=== PATIENT | male | born 1980 | race Two or more races ===

== ENCOUNTER 2016-09-25 23:06 | Emergency (ER) | payer SELFPAY ==
[~2016-09-25] VITALS: Ht 177.8 cm; Wt 99.8 kg
[2016-09-26] MEDS ORDERED: IV NORMAL SALINE 1000ML BAG 1,000 ML IV ONE (00:45)
[2016-09-26] MEDS ORDERED: KETOROLAC 15 MG/ML VIAL. IV ONE (00:45)
[2016-09-26] MEDS ORDERED: diphenhydrAMINE 50 MG/ML VIAL IVP ONE (00:45)
[2016-09-26] MEDS ORDERED: METOCLOPRAMIDE HCL 10 MG/2 ML VIAL. IV ONE (00:45)
[2016-09-26 01:02] LABS: BASO # 0.1 x10^3/uL (0.0-0.2); BASO % 1 % (0-3); EOS % 3 % (0-3); HEMATOCRIT 42.8 % (39.0-53.0); HEMOGLOBIN 14.9 g/dL (13.0-17.5); LYMPH # 2.3 x10^3/uL (1.0-4.8); LYMPH % 21 % (24-48); MEAN CORPUSCULAR HEMOGLOBIN 29 pg (25-35); MEAN CORPUSCULAR HGB CONC 35 g/dL (31-37); MEAN CORPUSCULAR VOLUME 83 fL (79-100); MONO % 4 % (0-9); NEUT % 71 % (31-73); PLATELET COUNT 251 x10^3/uL (140-400); RED BLOOD COUNT 5.13 x10^6/uL (4.30-5.70); RED CELL DISTRIBUTION WIDTH 12.9 % (11.5-14.5)
[2016-09-26 01:11] LABS: CREATININE 1.1 mg/dL (0.7-1.3); GFR 75.7; POTASSIUM 3.8 mmol/L (3.5-5.1)
--- NOTE | 2016-09-26 01:14 | RAD ---
CT head without contrast: Reason for examination: Stabbing headache tonight. Axial images were obtained through the brain. No contrast was administered. Exposure: One or more of the following individualized dose reduction techniques were utilized for this examination: 1. Automated exposure control 2. Adjustment of the mA and/or kV according to patient size 3. Use of iterative reconstruction technique. Ventricular systems are symmetric and not abnormally dilated. No midline shift is seen. There is no evidence of intracranial hemorrhage, infarct, mass or edema. No abnormalities are seen at the orbits. The paranasal sinuses are clear. Mastoid air cells are clear. No acute abnormality seen in the skull. IMPRESSION: No acute intracranial abnormality evident. Electronically signed by: Isa Lockhart MD (09/26/2016 1:11 AM) [facility]
[2016-09-26 01:17] LABS: ALBUMIN 3.8 g/dL (3.4-5.0); TOTAL BILIRUBIN 0.3 mg/dL (0.2-1.0); TOTAL PROTEIN 7.6 g/dL (6.4-8.2)
[2016-09-26 01:30] VITALS: BP 126/68
--- NOTE | 2016-09-26 01:35 | PHYS DOC ---
Past Medical History Past Medical History: No Pertinent History Past Surgical History: No Surgical History Alcohol Use: Occasionally Drug Use: None Adult General Chief Complaint Chief Complaint: HEADACHE HPI HPI Patient is a 35 year old gentleman who presents here today complaining of a headache for approximately 2 hours. Patient denies any other symptomatology at this time except for nausea and vomiting that occurred with this headache. Patient has any fevers shakes chills. Patient has any cough. Patient has any diarrhea. Patient has any chest pain or abdominal pain. Patient has any double vision or blurred vision. Patient has any weakness his upper or lower 70s. Patient denies any slurred speech. Family denies any facial droop. Patient has no history of hypertension diabetes liver longer kidney problems. Patient denies any tobacco alcohol or drugs. Patient has any family history of strokes or aneurysms in the past. Patient is not allergic to any medications. Patient has any abdominal or chest surgeries in the past. Constitutional: Denies fever or chills [] Eyes: Denies change in visual acuity, redness, or eye pain [] All other review systems are negative except as documented in the history of present illness portion. Constitutional: Well developed, well nourished, no acute distress, non-toxic appearance. [] HENT: Normocephalic, atraumatic, bilateral external ears normal, oropharynx moist, no oral exudates, nose normal. [] Patient has no papilledema. Patient's pupils were equally round and reactive to light. Extraocular motions were intact. Patient does not appear toxic. Patient no Kernig's or Buczynski signs. Patient's neck was supple. There is no rigidity. Eyes: EOMI, conjunctiva normal, no discharge. [] Neck: Normal range of motion, supple, no stridor. [] Cardiovascular:Heart rate regular rhythm Lungs & Thorax: Bilateral breath sounds clear to auscultation [] Abdomen: Bowel sounds normal, soft, no tenderness, no masses, no pulsatile masses. [] Skin: Warm, dry, no erythema Back: No tenderness, no CVA tenderness. [] Extremities: No tenderness, no cyanosis, no clubbing, ROM intact, no edema. [] Neurologic: Alert and oriented X 3, normal motor function, normal sensory function, no focal deficits noted. [] Psychologic: Affect normal, judgement normal, mood normal. [] Patient's physical exam was unremarkable the ER. Patient was resting comfortably and did not appear to be in any acute distress. Patient's ER hospital course was significant for receiving the migraine cocktail including Toradol, Reglan, Benadryl and IV fluids. Patient was reevaluated approximately 1 :15 and reports that he is currently pain-free. Patient has been sleeping in the ED since medications been given and feels comfortable be discharged home. Assessment and plan this is a 35-year-old gentleman who presents to the ER today with a headache of unclear etiology. Patient's CT scan of his head is been unremarkable. Patient's labs did not reveal any etiology of his headaches. Patient will be discharged home and is instructed to follow-up with his primary care physician for further evaluation of headache returns. Patient was instructed to return to the ER facility comes back or feel any further concerns. Family was instructed to bring patient back to the ER if his any weakness slurred speech or any other neurological changes. Patient currently does not present with high risk symptoms for subarachnoid, meningitis, venous sinus thrombosis. Patient is clinically hemodynamically stable for discharged home at this time. Current Medications Current Medications Current Medications Medications (Trade) Dose Ordered Sig/Leta Start Time Stop Time Status Last Admin Dose Admin Diphenhydramine HCl (Benadryl) 50 mg 1X ONCE 09/26/16 00:45 09/26/16 00:46 DC 09/26/16 00:48 50 MG Ketorolac Tromethamine (Toradol) 15 mg 1X ONCE 09/26/16 00:45 09/26/16 00:46 DC 09/26/16 00:49 15 MG Metoclopramide HCl (Reglan) 10 mg 1X ONCE 09/26/16 00:45 09/26/16 00:46 DC 09/26/16 00:49 10 MG Sodium Chloride 1,000 ml @ 1,000 mls/hr 1X ONCE 09/26/16 00:45 09/26/16 01:44 09/26/16 00:45 1,000 MLS/HR Allergies Allergies Allergies Coded Allergies Type Severity Reaction Last Updated Verified No Known Drug Allergies 07/07/13 No Current Patient Data Vital Signs Vital Signs Date Time Temp Pulse Resp B/P (MAP) Pulse Ox O2 Delivery O2 Flow Rate FiO2 09/25/16 23:21 99.0 61 20 164/99 (120) 100 Room Air 99.0 Lab Values Laboratory Tests Test 09/26/16 00:56 White Blood Count 11.0 x10^3/uL (4.0-11.0) Red Blood Count 5.13 x10^6/uL (4.30-5.70) Hemoglobin 14.9 g/dL (13.0-17.5) Hematocrit 42.8 % (39.0-53.0) Mean Corpuscular Volume 83 fL (79-100) Mean Corpuscular Hemoglobin 29 pg (25-35) Mean Corpuscular Hemoglobin Concent 35 g/dL (31-37) Red Cell Distribution Width 12.9 % (11.5-14.5) Platelet Count 251 x10^3/uL (140-400) Neutrophils (%) (Auto) 71 % (31-73) Lymphocytes (%) (Auto) 21 % (24-48) L Monocytes (%) (Auto) 4 % (0-9) Eosinophils (%) (Auto) 3 % (0-3) Basophils (%) (Auto) 1 % (0-3) Neutrophils # (Auto) 7.9 x10^3uL (1.8-7.7) H Lymphocytes # (Auto) 2.3 x10^3/uL (1.0-4.8) Monocytes # (Auto) 0.5 x10^3/uL (0.0-1.1) Eosinophils # (Auto) 0.3 x10^3/uL (0.0-0.7) Basophils # (Auto) 0.1 x10^3/uL (0.0-0.2) Sodium Level 141 mmol/L (136-145) Potassium Level 3.8 mmol/L (3.5-5.1) Chloride Level 104 mmol/L (98-107) Carbon Dioxide Level 30 mmol/L (21-32) Anion Gap 7 (6-14) Blood Urea Nitrogen 12 mg/dL (8-26) Creatinine 1.1 mg/dL (0.7-1.3) Estimated GFR (Cockcroft-Gault) 75.7 BUN/Creatinine Ratio 11 (6-20) Glucose Level 208 mg/dL (70-99) H Calcium Level 9.0 mg/dL (8.5-10.1) Total Bilirubin 0.3 mg/dL (0.2-1.0) Aspartate Amino Transferase (AST) 34 U/L (15-37) Alanine Aminotransferase (ALT) 95 U/L (16-63) H Alkaline Phosphatase 89 U/L (46-116) Total Protein 7.6 g/dL (6.4-8.2) Albumin 3.8 g/dL (3.4-5.0) Albumin/Globulin Ratio 1.0 (1.0-1.7) Laboratory Tests 09/26/16 00:56 Laboratory Tests 09/26/16 00:56 EKG EKG [] Radiology/Procedures Radiology/Procedures [] Course & Med Decision Making Course & Med Decision Making Pertinent Labs and Imaging studies reviewed. (See chart for details) [] Dragon Disclaimer Dragon Disclaimer This electronic medical record was generated, in whole or in part, using a voice recognition dictation system. Departure Departure Impression: Primary Impression: Headache Disposition: 01 HOME, SELF-CARE Condition: IMPROVED Referrals: NO PCP (PCP) Patient Instructions: General Headache Without Cause Additional Instructions: Please follow up with her doctor in 1-2 days for reevaluation. Return to the ER if he started having worsening headaches or any other concerns JACEY NAVA MD Sep 26, 2016 01:35
== END 2016-09-26 01:50 | disposition home or self-care (01) ==
LOC: ER 23:06
DX: R51 Headache (principal); R11.2 Nausea with vomiting, unspecified
CPT/HCPCS: 36415; 70450; 80053; 85027; 96361; 96374; 96375; 99285; J1200; J1885; J2765; J7030